=== PATIENT | female | born 1985 | race Caucasian/White ===

== ENCOUNTER 2020-01-12 13:48 | Emergency (ER) | payer OTHER ==
[~2020-01-12] VITALS: Ht 172.7 cm; Wt 68.5 kg
--- NOTE | 2020-01-12 14:32 | NUR ---
PT C/O ABD PAIN W/ N/V/D X 5 DAYS. PT AAOX4, VSS, RR EVEN & UNLABORED. DENIES CP, SOB, DIZZINESS, FEVER AT THIS TIME. PT SEEN & EVAL'D BY DR. SHABAZZ. WILL CONT TO MONITOR.
[2020-01-12 14:52] LABS: APPEARANCE,URINE Clear (CLEAR); BILIRUBIN,URINE Negative (NEGATIVE); BLOOD, URINE Trace-intact Ery/uL (NEGATIVE); COLOR,URINE Yellow (YELLOW); KETONES,URINE 40 (NEGATIVE); LEUKOCYTE ESTERASE ,URINE Trace (NEGATIVE); NITRITE, URINE Negative (NEGATIVE); PH,URINE 6.5 (5.0-8.0); PROTEIN,URINE Negative (NEGATIVE); UGLUCOSE Negative (NEGATIVE); UROBILINOGEN,URINE 0.2 EU/dL (0.2)
[2020-01-12 14:53] LABS: BACTERIA,URINE Few /HPF (None Seen); SQUAMOUS EPITHELIAL CELL,UR Few /HPF (None Seen)
[2020-01-12] MEDS ORDERED: IV NS 0.9% 1,000 ML IV ONE (15:00)
[2020-01-12 15:09] LABS: BASOPHILS # (AUTO) 0.1 /CMM (0.0-0.2); BASOPHILS % (AUTO) 0.8 % (0.0-2.0); HEMATOCRIT 42 % (33-45); HEMOGLOBIN 14.4 g/dL (11.5-14.8); LYMPHOCYTES # (AUTO) 2.4 /CMM (0.8-4.8); LYMPHOCYTES % (AUTO) 27.9 % (20.0-44.0); MEAN CORPUSCULAR HGB CONC 34 g/dl (31.0-36.0); MEAN CORPUSCULAR VOLUME 84 fL (82-100); MONOCYTES # (AUTO) 0.6 /CMM (0.1-1.30); MONOCYTES % (AUTO) 6.8 % (2.0-12.0); NEUTROPHILS # (AUTO) 5.5 /CMM (1.8-8.9); NEUTROPHILS % (AUTO) 63.5 % (43.0-81.0); PLATELET COUNT (AUTO) 320 /CMM (150-450); RED BLOOD CELL COUNT(AUTO) 5.06 MIL/uL (4.0-5.2); WHITE BLOOD COUNT (AUTO) 8.6 K/uL (4.3-11.0)
[2020-01-12 15:10] LABS: CALCIUM, SERUM 9.4 mg/dL (8.5-10.1); CREATININE 0.6 mg/dL (0.6-1.3); POTASSIUM 3.8 mmol/L (3.5-5.1)
[2020-01-12 15:22] LABS: ALBUMIN 4.3 g/dL (3.4-5.0); BILIRUBIN,DIRECT 0.1 mg/dL (0.0-0.2); BILIRUBIN,TOTAL 0.6 mg/dL (0.2-1.0); TOTAL PROTEIN, SERUM 7.9 g/dL (6.4-8.2)
--- NOTE | 2020-01-12 16:00 | NUR ---
Patient discharged to home in stable condition. Written and verbal after care instructions given. Patient verbalizes understanding of instruction. IV removed. Catheter intact and site benign. Pressure and 4x4 applied to site. No bleeding noted.
[2020-01-12 16:29] VITALS: BP 124/78
== END 2020-01-12 16:29 | disposition home or self-care (01) ==
LOC: ER 13:53
DX: K52.9 Noninfective gastroenteritis and colitis, unspecified (principal); F41.9 Anxiety disorder, unspecified
CPT/HCPCS: 36415; 80048; 80076; 81001; 83690; 84703; 85025; 96360; 99283; J7030; 81000-TC

== ENCOUNTER 2024-03-30 15:38 | Emergency (ER) | payer MEDICAID, OTHER ==
[~2024-03-30] VITALS: Ht 172.7 cm; Wt 68.0 kg
[2024-03-30 15:53] VITALS: BP 135/81; TEMP 98.8
[2024-03-30 18:32] VITALS: O2SAT 100
== END 2024-03-30 18:33 | disposition home or self-care (01) ==
LOC: ER 15:43
DX: J34.89 Other specified disorders of nose and nasal sinuses (principal); R09.81 Nasal congestion; R51.9 Headache, unspecified; W22.09XA Striking against other stationary object, initial encounter; Y93.89 Activity, other specified; Y92.89 Other specified places as the place of occurrence of the external cause; Y99.8 Other external cause status
CPT/HCPCS: 70486-TC